=== PATIENT | female | born 1950 | race Caucasian/White ===

== ENCOUNTER 2018-02-19 12:02 | Emergency (ER) | payer MEDICARE ==
[2018-02-19] MEDS ORDERED: Bupivacaine 0.5% 10 ML VIAL ONE (12:32)
[2018-02-19 13:06] LABS: #Basophils 0.1 thou/uL (0.0-0.2); #Eosinphils 0.1 thou/uL (0.0-0.7); #Lymphocytes 1.3 thou/uL (1.20-3.40); #Monocytes 0.2 thou/uL (0.11-0.59); #Neutrophils 8.2 thou/uL (1.40-6.50); %Basophils 0.9 % (0.0-1.0); %Eosinophils 0.7 % (0.0-10.0); %Lymphocytes 13.6 % (21.0-51.0); %Monocytes 2.2 % (0.0-10.0); %Neutrophils 82.6 % (42.0-75.0); Hemoglobin 13.5 g/dL (12.0-16.0); Mean Corpuscular HGB CONC 32.8 g/dL (32.0-36.0); Mean Corpuscular Hemoglobin 29.7 pg (27.0-31.0); Mean Corpuscular Volume 90.5 fl (81.0-99.0); Mean Platelet Volume 15.7 fL (7.4-10.4); Platelet Count 176 thou/uL (130-400); RBC Distribution Width 13.8 % (11.5-14.5); Red Blood Cell (RBC) Count 4.56 mill/uL (4.20-5.40); White Blood Cell (WBC) Count 9.9 thou/uL (4.8-10.8)
[2018-02-19 13:11] LABS: ALT (SGPT) 36 U/L (8-55); AST (SGOT) 36 U/L (5-34); Alkaline Phosphatase 111 U/L (40-150); Anion Gap 14 mmol/L (10-20); BUN (Urea Nitrogen) 13 mg/dL (9.8-20.1); Bilirubin, Total 0.4 mg/dL (0.2-1.2); Calc. Creatinine Clearance 0 mL/min (70-130); Calcium 9.8 mg/dL (7.8-10.44); Carbon Dioxide 26 mmol/L (23-31); Chloride 106 mmol/L (98-107); Estimated GFR-MDRD 68; Globulin 3.4 g/dL (2.4-3.5); Glucose 106 mg/dL (80-115); Potassium 4.3 mmol/L (3.5-5.1); Protein, Total 7.4 g/dL (6.0-8.3); Sodium 142 mmol/L (136-145)
[2018-02-19 13:13] LABS: CKMB 2.3 ng/mL (0-6.6); Troponin I Less than 0.010 ng/mL (< 0.028)
[2018-02-19] MEDS ORDERED: Ibuprofen 600 MG TAB ONE (13:13)
[2018-02-19] MEDS ORDERED: Cyclobenzaprine 10 MG TAB ONE (13:13)
== END 2018-02-19 13:37 | disposition home or self-care (01) ==
LOC: SCSER 12:02
DX: S16.1XXA Strain of muscle, fascia and tendon at neck level, initial encounter (principal); I10 Essential (primary) hypertension; E03.9 Hypothyroidism, unspecified; E78.2 Mixed hyperlipidemia; F17.210 Nicotine dependence, cigarettes, uncomplicated; X58.XXXA Exposure to other specified factors, initial encounter
CPT/HCPCS: 36415; 80053; 82553; 84484; 85025; 96372; J3490

== ENCOUNTER 2019-01-29 08:33 | Outpatient (CLI) | payer MEDICARE ==
--- NOTE | 2019-01-29 12:05 | RAD ---
LEFT SHOULDER ARTHROGRAM: INDICATION: Left shoulder arthritis; planning for left shoulder replacement. TECHNIQUE: Informed consent was obtained. Preprocedure commercial relief driver images were performed of the left shoulder. The p atient was placed supine on the fluoroscopic table. The site overlying the left glenohumeral joint w as marked. The site was prepped and draped in the usual sterile fashion. Buffered 1% Lidocaine was administered to the overlying subcutaneous tissues. Under fluoroscopic guidance, a 22-gauge spinal n eedle was guided down into the glenohumeral joint. The joint was opacified utilizing approximately 1 0 cc of a dilute Isovue solution. The patient tolerated the injection without difficulty. Total flu orosocpic time is 0.5 minutes. Total exposure is 26.5 mGy*^cm2. FINDINGS: There is advanced osteoarthrosis of the glenohumeral joint with intraarticular bodies seen within the region of the axillary pouch and anteriorly within the glenohumeral joint and possibly within the roy bcoracoid recess. Visualized left lung is clear. IMPRESSION: 1. Successful left shoulder arthrogram. 2. Advanced left glenohumeral osteoarthrosis with intraarticular bodies. POS: [facility]
--- NOTE | 2019-01-29 12:41 | CT ---
CT ARTHROGRAM LEFT SHOULDER: INDICATIONS: Left shoulder pain. TECHNIQUE: Multiple CT images were obtained of the left shoulder, following the introduction of diluted Isovue c ontrast. Please see the left shoulder arthrogram for details concerning the injection technique. FINDINGS: No full-thickness rotator cuff tear is demonstrated. The biceps tendon is located. There is advanced glenohumeral osteoarthrosis. There are multiple intraarticular bodies. There is a 1.8 cm intraarticular body within the axillary recess. There is a 1.3 cm intraarticular b raquel within the anterior glenohumeral joint space. There is a 1.4 cm intraarticular body seen adjacen t to the coracoid base. There is a 1.4 cm intraarticular body within the subcoracoid recess. There are prominent marginal osteophytes involving the glenohumeral joint. There is mild AC joint osteoart hrosis. No muscular atrophy is present. IMPRESSION: 1. Severe glenohumeral osteoarthrosis with multiple intraarticular bodies. 2. No full-thickness rotator cuff tear if demonstrated. 3. Mild acromioclavicular joint osteoarthrosis. POS: [facility]
== END 2019-01-29 08:34 | disposition home or self-care (01) ==
LOC: RAD 08:33
PROVIDERS: ATTEND Orthopaedic Surgery
DX: M19.012 Primary osteoarthritis, left shoulder (principal)
CPT/HCPCS: 23350

== ENCOUNTER 2019-02-20 06:56 | Outpatient (CLI) | payer MEDICARE ==
--- NOTE | 2019-02-20 21:28 | EKG ---
Test Reason : Blood Pressure : / mmHG Vent. Rate : 068 BPM Atrial Rate : 068 BPM P-R Int : 148 ms QRS Dur : 080 ms QT Int : 382 ms P-R-T Axes : 060 046 062 degrees QTc Int : 406 ms Normal sinus rhythm Normal ECG No previous ECGs available Confirmed by PETAR DELVALLE, DR. Parker ([id number]) on 02/20/2019 9:27:38 PM Referred By: IERO Confirmed By:DR. Keith DAVEY MD
== END 2019-02-20 06:57 | disposition home or self-care (01) ==
LOC: LABBT 06:56
PROVIDERS: ATTEND Orthopaedic Surgery
DX: Z01.810 Encounter for preprocedural cardiovascular examination (principal); M19.012 Primary osteoarthritis, left shoulder
CPT/HCPCS: 93005; 93010

== ENCOUNTER 2019-02-20 13:30 | Observation (INO) | payer MEDICARE ==
[2019-02-20 13:53] VITALS: BMI 26.6
[2019-02-20 15:22] LABS: Bilirubin Negative (Negative); Blood, Urine Negative (Negative); Clarity CLEAR (Clear); Glucose, Urine (Dipstick) Negative (Negative); Leukocyte Negative (Negative); Nitrite Negative (Negative); Protein, Urine (Dipstick) Negative (Neg-Trace); Specific Gravity, Urine 1.013 (1.002-1.036); Urobilinogen 0.2 mg/dL (0.2-1.0)
[2019-02-20 15:23] LABS: Bacteria/HPF None Seen HPF (None Seen); Hyaline Casts/LPF 7-10 HYALINE CAST LPF (0-3 Hyaline); Pathc Cast-AUWi Flag 2.44 (0-2.49); RBC/HPF 0-3 HPF (0-3); Squamous Epithelial 0-3 HPF (0-3); WBC/HPF 0-3 HPF (0-3)
[2019-02-20 15:25] LABS: Prothrombin Time 12.8 SEC (12.0-14.7)
[2019-02-20 15:39] LABS: Anion Gap 15 mmol/L (10-20); BUN (Urea Nitrogen) 19 mg/dL (9.8-20.1); Calc. Creatinine Clearance 0 mL/min (70-130); Calcium 9.9 mg/dL (7.8-10.44); Carbon Dioxide 24 mmol/L (23-31); Chloride 105 mmol/L (98-107); Estimated GFR-MDRD 47; Glucose 92 mg/dL (80-115); Potassium 4.9 mmol/L (3.5-5.1); Sodium 139 mmol/L (136-145)
[2019-02-20 16:17] LABS: #Eosinphils 0.2 thou/uL (0.0-0.7); #Lymphocytes 1.5 thou/uL (1.20-3.40); #Monocytes 0.4 thou/uL (0.11-0.59); #Neutrophils 6.9 thou/uL (1.40-6.50); %Basophils 0.5 % (0.0-1.0); %Eosinophils 1.8 % (0.0-10.0); %Lymphocytes 16.5 % (21.0-51.0); %Monocytes 4.5 % (0.0-10.0); %Neutrophils 76.7 % (42.0-75.0); Hemoglobin 12.3 g/dL (12.0-16.0); Large Platelets SLIGHT; MDiff Complete? YES; Mean Corpuscular HGB CONC 33.1 g/dL (32.0-36.0); Mean Corpuscular Hemoglobin 29.5 pg (27.0-31.0); Mean Corpuscular Volume 89.1 fL (78.0-98.0); Mean Platelet Volume 12.2 fL (7.4-10.4); Platelet Count 166 thou/uL (130-400); Platelet Morphology Comment Appears Adequate; RBC Distribution Width 13.5 % (11.5-14.5); Red Blood Cell (RBC) Count 4.16 mill/uL (4.20-5.40)
[2019-02-22] MEDS ORDERED: Tranexamic Acid 1,000 MG/10 ML VIAL ONE (06:22)
[2019-02-22] MEDS ORDERED: Sodium Chloride 0.9% 100 ML ONE (06:22)
[2019-02-22] MEDS ORDERED: Fentanyl 100 MCG/2 ML VIAL ONE (06:25)
[2019-02-22] MEDS ORDERED: Midazolam HCl 2 mg/2 ml Vial ONE (06:25)
[2019-02-22] MEDS ORDERED: Lidocaine 1% (PF) 30 ML VIAL ONE (06:25)
[2019-02-22] MEDS ORDERED: Zolpidem Tartrate 5 MG TAB PO PRN (07:23)
[2019-02-22] MEDS ORDERED: HYDROcodone/Acetaminophen 10/325 mg Tablet PO PRN ×2 (07:23)
[2019-02-22] MEDS ORDERED: traMADol HCl 50 MG TAB PO PRN ×2 (07:23)
[2019-02-22] MEDS ORDERED: Ropivacaine 0.2% 550 ML 550 ML NERVE BLCK SCH (07:23)
[2019-02-22] MEDS ORDERED: Fentanyl 100 MCG/2 ML VIAL SLOW IVP PRN (07:24)
[2019-02-22] MEDS ORDERED: diphenhydrAMINE 50 MG CAP PO PRN (09:08)
[2019-02-22] MEDS ORDERED: Bisacodyl 10 MG SUPP PR PRN (09:08)
[2019-02-22] MEDS ORDERED: Milk Of Magnesia 30 ML UDCUP PO PRN (09:08)
[2019-02-22] MEDS ORDERED: Methocarbamol 1 GM/10 ML VIAL SLOW IVP PRN (09:08)
[2019-02-22] MEDS ORDERED: Vancomycin HCl 1 GM in Premix Bag 1 BAG IVPB SCH ×2 (09:15→20:00)
[2019-02-22] MEDS ORDERED: Ondansetron HCl/PF 4 MG/2 ML Vial IVP PRN (09:32)
[2019-02-22] MEDS ORDERED: Promethazine HCl 25 MG/ML VIAL SLOW IVP PRN (09:32)
[2019-02-22] MEDS ORDERED: Promethazine HCl 25 MG/ML VIAL IM PRN (09:32)
[2019-02-22] MEDS ORDERED: Promethazine HCl 25 MG/ML VIAL ONE (09:33)
[2019-02-22] MEDS: Lactated Ringer's 1,000 ML IV SCH (10:25)
[2019-02-22] MEDS ORDERED: Ropivacaine 0.5% HCl/PF (150 MG/30 ML VIAL) ONE (11:47)
[2019-02-22] MEDS ORDERED: Ropivacaine 0.2% HCl/PF (40 MG/20 ML VIAL) ONE (11:47)
[2019-02-22] MEDS ORDERED: Glycopyrrolate 0.2 MG/ML 5 ML SYRINGE ONE (12:18)
[2019-02-22] MEDS ORDERED: PHENYLEPHRINE-NS 100 MCG/ML 10 ML SYRINGE ONE (12:18)
[2019-02-22] MEDS ORDERED: Rocuronium Bromide 10 MG/ML (10ML VIAL) ONE (12:18)
[2019-02-22] MEDS ORDERED: Lidocaine 1% PF 5 ML VIAL ONE (12:18)
[2019-02-22] MEDS ORDERED: ePHEDrine 50 MG/ML VIAL ONE (12:18)
[2019-02-22] MEDS ORDERED: Ondansetron PF 4 MG/2 ML Vial ONE (12:18)
[2019-02-22] MEDS ORDERED: PROPOFOL 200 MG/20 ML VIAL ONE (12:18)
[2019-02-22] MEDS: Ondansetron PF 4 MG/2 ML Vial IVP PRN ×2 (13:16→19:46)
[2019-02-22] MEDS: CEFAZOLIN 2 GM in Premix Bag 1 BAG IVPB SCH ×2 (15:11→22:39)
--- NOTE | 2019-02-22 15:43 | OP ---
DATE OF PROCEDURE: 02/22/2019 PREOPERATIVE DIAGNOSIS: Left shoulder glenohumeral arthrosis as well as multiple loose bodies. POSTOPERATIVE DIAGNOSIS: Left shoulder glenohumeral arthrosis as well as multiple loose bodies. PROCEDURES PERFORMED: 1. Left total shoulder replacement using Aequalis prosthesis. 2. Biceps tenodesis. ASSISTANTS: Dr. Yoel Mejia as well as ROBERT Virk BLOOD LOSS: About 150 mL. ANESTHESIA: We had general anesthetic as well as preoperative block. IMPLANTS: Implants to the left shoulder, Aequalis performed, M40 pegged glenoid. We used a Flex shoulder system, which was a size 4A and we used a 46 x 17 mm Flex head. DISPOSITION: She did go to recovery in stable condition. INDICATIONS: A 68-year-old, long-term patient of mine, who at this point in time wished to have her shoulder replaced secondary to unrelenting pain and dysfunction. DESCRIPTION OF PROCEDURE: After all appropriate consent forms were explained and signed, she was taken back to the operating room and at this time was given a general anesthetic. Once the level of anesthesia was appropriate, she was placed in modified beach chair position with all bony prominences well padded. At this time, the left shoulder and upper extremity were prepped and draped in standard surgical fashion. An incision was made from the tip of the coracoid down distal and lateral down through skin only. A Bovie was used to coagulate any brisk venous bleeding. A small strip of deltoid was then taken with the cephalic vein medially. The deltoid was taken laterally. Undermined the entire deltoid, so that the humeral head would move freely underneath this, and at this time self-retaining retractor was placed. We then took the conjoined tendon off the underlying subscapularis. Self retainer was then replaced. Opened up the bicipital groove, pulled out the biceps, tagged it and then cut it out from the joint. We then released the subscapularis with a small piece of bone using osteotome. With external rotation and extension, we then released circumferentially the capsule along the inferior aspect of the humeral head to nearly the 8 or 9 o'clock position. At this time, Darrach retractors were placed superiorly, turner Mckeonhmann inferiorly and a saw cut was performed on the head. At this time, we then broached our canal to open it, followed by using the sound to a 5, followed by using the broaches. A size 4 broach was felt to be stable. This was then locked and the impactor removed. We then placed our head cut protector on top of this. We then went about performing our glenoid. Hohmann was placed posterior inferior. We then released our subscap anteriorly as well as the capsule. In doing so, large loose body was removed from underneath the subscap and another one was found underneath the coracoid. At this time, remnant of the biceps as well as the labrum was removed circumferentially. We then drilled our central hole, used a scrap handler to ream our bone after we confirmed that with a 40 tomahawk. It seemed like a medium 40 would be the right fit and at this time, we drilled our central anchor peg hole followed by drilling our three circumferential pegs. A trial was placed and sat nicely. We then thoroughly irrigated and dried while the cement was mixed on the back table. We then placed a small amount of cement into the three peripheral pegs and placed our pegged glenoid for final implantation. Any loose or excess bone cement was removed with a [employer] elevator. Once this had dried, we went on to finish our shoulder by removing the cup plate, trialing a head and feeling that the 46 head with a 5 at the top gave us our best coverage. Upon reduction, we had nice 50% posterior and inferior shuck, easily able to put the hand onto the belly and we felt that this would be a good match. The entire stem was pulled out. It was found to be in A , therefore a size 4A with a 46 mm head with 5 at the top was impacted on the table for final implantation. Prior to putting this in, four drill holes were placed into the humeral shaft with #5 Ethibond placed for our double row subscap repair. Implant was applied. Shoulder was reduced one last time. We thoroughly irrigated and dried. We then used our medial #5 sutures that were placed through the subscapularis tendon through bone and our laterally based sutures in mattress fashion through the tendon medial to the sutures. We then reduced the head, pushed down, tied all of our sutures repairing our subscapularis. The biceps was then tenodesed with the ethibond suture to the proximal soft tisue. We then placed a couple of #1 Ethibond sutures to close our interval superiorly. We thoroughly irrigated and dried one more time. We used 2-0 Vicryl to loosely close our deltopectoral interval as well as the subdermal tissue, and deidre to close skin. Bulky sterile dressing was applied. She was awakened, taken to recovery room in stable condition. All counts were correct at the end of the case and she did receive preoperative IV antibiotics. Job ID: [id number] [facility]
[2019-02-22] MEDS: Promethazine HCl 25 MG/ML VIAL IM PRN ×2 (18:02→22:39)
[2019-02-22] MEDS: Lisinopril 20 MG TAB PO SCH (19:46)
[2019-02-22] MEDS: Famotidine 20 MG TAB PO SCH (19:47)
[2019-02-23] MEDS: Acetaminophen 325 MG TAB PO PRN ×2 (04:08→09:43)
[2019-02-23] MEDS: Ondansetron PF 4 MG/2 ML Vial IVP PRN (04:08)
[2019-02-23] MEDS ORDERED: Amlodipine 10 MG TAB PO SCH (09:00)
[2019-02-23] MEDS ORDERED: Atorvastatin Calcium 10 MG TAB PO SCH (09:00)
[2019-02-23] MEDS: Famotidine 20 MG TAB PO SCH (09:40)
[2019-02-23] MEDS: Lactated Ringer's 1,000 ML IV SCH (09:40)
[2019-02-23] MEDS: Lisinopril 20 MG TAB PO SCH (09:41)
[2019-02-23 12:24] VITALS: BP 166/77; TEMP 98.9
== END 2019-02-23 13:07 | disposition home or self-care (01) ==
LOC: INTOOBSV 02-22 05:37 → SURG A 02-22 05:37 → SJJU 02-22 09:53
PROVIDERS: ADMIT Orthopaedic Surgery; ATTEND Orthopaedic Surgery
PROC: 0RRK0JZ Replacement of Left Shoulder Joint with Synthetic Substitute, Open Approach (ICD-10-PCS; principal; 2019-02-22)
PROC: 0LS20ZZ Reposition Left Shoulder Tendon, Open Approach (ICD-10-PCS; 2019-02-22)
DX: M19.012 Primary osteoarthritis, left shoulder (principal); M24.012 Loose body in left shoulder; I10 Essential (primary) hypertension; E78.00 Pure hypercholesterolemia, unspecified; E07.9 Disorder of thyroid, unspecified; F17.200 Nicotine dependence, unspecified, uncomplicated; Z79.899 Other long term (current) drug therapy; Z01.810 Encounter for preprocedural cardiovascular examination
CPT/HCPCS: 23430; 23472; 80048; 81001; 85025; 85610; 86850; 86900; 86901; 87081; 93005; 96361 ×2; 96365; 96366; 96372; 96375; 96376 ×2; 97110 ×2; 97116; 97139 ×2; 97535; A4306; C1713; G0378; 36415; 93010; J2001; J2250; J2405; J2550; J2704; J2795; J2800; J3010; J3370; J3490; J7050